=== PATIENT | male | born 1965 | race Caucasian/White ===

== ENCOUNTER 2020-03-30 10:55 | Inpatient (IN) | payer BC ==
[~2020-03-30] VITALS: Ht 165.1 cm; Wt 112.5 kg
[~2020-03-30 10:55] MED LIST: ASPIR-LOW81 MG PO; ATENOLOL25 MG PO; FLONASE ALLERG9.9 ML NS; PRAVASTATIN SOD20 MG PO; ZYRTEC10 MG PO
[2020-03-30] MEDS ORDERED: ATENOLOL50 MG PO (12:32)
[2020-03-30] MEDS ORDERED: PRAVASTATIN SOD40 MG PO (12:33)
--- NOTE | 2020-03-30 15:00 | NUR ---
Patient arrives to the unit via stretcher on vapotherm. Settings of 30L and 80% FiO2, SpO2 in the low 90's. Work of breathing noted at rest. Patient transfers to hospital bed with 1PA, steady on feet. Labored breathing noted with exertion, HR climbs to the 130's and SpO2 falls to the low 80's. Patient now laying in bed with accessory muscle use noted. Vapotherm titrated to 30L and 100% FiO2, SpO2 rises to mid to upper 90's. Vital signs taken, assessment complete. Water refreshed. Dry cough noted, patient sits at edge of bed and uses IS, up to 1250 mls. Coughing noted after use. Medications given. Call light within reach.
--- NOTE | 2020-03-30 17:00 | NUR ---
160 mg of enoxaparin given. Duque catheter placed, patient tolerated well
--- NOTE | 2020-03-30 17:35 | NUR ---
RT in room undergoing a CPAP trial currently
--- NOTE | 2020-03-30 17:37 | NUR ---
RESPONDED TO IV PUMP. IV PUMP RESTARTED AND IVF WERE INFUSING ORDERED. PT UP TO SIDE OF BED TO URINATE INTO URINAL PT HR INC TO THE 120'S AND SPO2 DROPPED DOWN TO THE MID 70'S. DR. MILES GAVE VERBAL ORDER TO INSERT JAUREGUI CATHETER TO REDUCE WORK OF PT. JAUREGUI CATHETER PLACED. STERILE PROCEDURE WAS FOLLOWED PER PROTOCOL. PT TOLERATED PROCEDURE WELL. ORDERED LOVENOX ADMINISTERED ORDERED. IV FLUIDS STOPPED PER DR. MILES'S ORDERS. RT IN TO START PT. ON CPAP, VERONICA MCGRATH IN TO START ANOTHER IV. DR. MILES UPDATED PATIENT ON CONDITION AND PLAN OF CARE. WILL CONTINUE PLAN OF CARE. CONTINUE PLAN OF CARE.
--- NOTE | 2020-03-30 18:24 | NUR ---
Patient sitting up in bed with CPAP of 10 and 40% FiO2, SpO2 of 93%. RR of 22. Labored breathing noted. HR in the 120's. Call light within reach.
--- NOTE | 2020-03-30 18:37 | NUR ---
Bed accepted at [facility]. [facility] contacted, waiting for confirmation.
--- NOTE | 2020-03-30 19:13 | NUR ---
Report given to VERONICA Jernigan at [facility]
--- NOTE | 2020-03-30 20:03 | NUR ---
[facility] arrived to transport patient. Report given. Patient on CPAP of 10 at 50% FiO2. SpO2 of 93-95%, RR in the low 20's. Patient trialed on non-rebreather at 15L to assess SpO2 and RR prior to ground transport. Patient maintaining saturations at 90-93%, reports breathing "feels better." HR remains in the 120's. Patient denies pain, reports SOB improved. [facility] [employer] crew leaves unit with patient.
--- NOTE | 2020-03-31 13:11 | EKG ---
[facility] [address] [place], [place] [address] Signed Sinus tachycardia Septal infarct , age undetermined Abnormal ECG No previous ECGs available Confirmed by RADHA MILES DO ([id number] on 03/31/2020 1:11:16 PM Electronically Signed By: RADHA MILES DO 03/31/20 1311 PATIENT NAME: ARIELA DAVILA Electrocardiogram DATE OF : 65 PHYSICIAN: RADHA MILES DO REPORT #: [id number] REPORT IS CONFIDENTIAL AND NOT TO BE RELEASED WITHOUT AUTHORIZATION
== END 2020-03-30 20:00 | disposition short-term general hospital (02) | DRG 177 ==
LOC: ED 10:55 → CCU 13:54
PROVIDERS: ADMIT Student in an Organized Health Care Education/Training Program; ATTEND Student in an Organized Health Care Education/Training Program
PROC: XW033E5 Introduction of Remdesivir Anti-infective into Peripheral Vein, Percutaneous Approach, New Technology Group 5 (ICD-10-PCS; principal; 2020-03-30)
PROC: 5A09357 Assistance with Respiratory Ventilation, Less than 24 Consecutive Hours, Continuous Positive Airway Pressure (ICD-10-PCS; 2020-03-30)
DX: U07.1 COVID-19 (principal); J12.89 Other viral pneumonia; J96.01 Acute respiratory failure with hypoxia; I26.99 Other pulmonary embolism without acute cor pulmonale; I10 Essential (primary) hypertension; E78.5 Hyperlipidemia, unspecified; R00.0 Tachycardia, unspecified; Z79.899 Other long term (current) drug therapy; Z79.82 Long term (current) use of aspirin
CPT/HCPCS: 71045; 71260; 80053; 83605; 83735; 83880; 84484; 85025; 85379; 86140; 93005; 93010; 94660; 94799; 96365; 96366; 96367; 96375; 99285-25; J0456; J0696; J1100; J1650; J7030; J7050; J7060; J7121

== ENCOUNTER 2020-04-21 22:43 | Emergency (ER) | payer BC ==
[~2020-04-21] VITALS: Ht 165.1 cm; Wt 112.5 kg
[~2020-04-21 22:43] MED LIST changes: +ATENOLOL50 MG PO; +PRAVASTATIN SOD40 MG PO
--- OUTSIDE RECORDS SUMMARY | 2020-04-21 22:46 | XMS ---
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 Alexis VISIT COUNT (12 MO.) 2 [facility] TOTAL 2 NOTE: Visits indicate total known visits. ED/C VISIT TRACKING (12 MO.) 04/21/2020 22:43 [facility] TYPE: Emergency COMPLAINT: - RAPID HEART RATE 03/30/2020 10:56 [facility] TYPE: Emergency COMPLAINT: - SOB COVID+ INPATIENT VISIT TRACKING (12 MO.) 03/30/2020 21:26 [facility] Natacha ALMAGUER TYPE: Internal Medicine DIAGNOSES: - COVID-19 - Hypoxic respiratory failure - Pulmonary emboli - Acute respiratory failure with hypoxia - Other pulmonary embolism without acute cor pulmonale - Covid-19 infection 03/30/2020 13:54 [facility] [place] TYPE: Critical Care COMPLAINT: - COVID 19 DIAGNOSES: - Essential (primary) hypertension - COVID-19 - Tachycardia, unspecified - Hyperlipidemia, unspecified - Other viral pneumonia - Other detention (current) drug therapy - Other pulmonary embolism without acute cor pulmonale - exterminator helper (current) use of aspirin - Acute respiratory failure with hypoxia [email or web address]
[2020-04-21] MEDS ORDERED: ELIQUIS5 MG PO (23:00)
[2020-04-21] MEDS ORDERED: VITAMIN D3125 MC1 PO (23:01)
[2020-04-21] MEDS ORDERED: VENTOLIN HFA18 GM INH (23:02)
[2020-04-21] MEDS ORDERED: BENZONATATE200 MG PO (23:03)
--- NOTE | 2020-04-22 07:11 | EKG ---
[facility] [address] [place] [address] Signed Sinus tachycardia Cannot rule out Anterior infarct (cited on or before 30-MAR-2020) Abnormal ECG When compared with ECG of 30-MAR-2020 11:23, Questionable change in initial forces of Septal leads Nonspecific T wave abnormality no longer evident in Anterior leads Confirmed by HUGH COPELAND MD ([id number] on 04/22/2020 7:11:16 AM Electronically Signed By: HUGH COPELAND MD 04/22/20 0711 PATIENT NAME: ARIELA DAVILA Electrocardiogram DATE OF : 65 PHYSICIAN: HUGH COPELAND MD REPORT #: [id number] REPORT IS CONFIDENTIAL AND NOT TO BE RELEASED WITHOUT AUTHORIZATION
== END 2020-04-22 01:32 | disposition home or self-care (01) ==
LOC: ED 22:43
DX: R00.0 Tachycardia, unspecified (principal); I10 Essential (primary) hypertension; Z88.8 Allergy status to other drugs, medicaments and biological substances; Z79.899 Other long term (current) drug therapy; Z79.82 Long term (current) use of aspirin
CPT/HCPCS: 71045; 80053; 83735; 84484; 85025; 93005; 93010; 99285-25; J7030